=== PATIENT | male | born 1995 | race Caucasian/White ===

== ENCOUNTER 2017-02-01 15:38 | Emergency (ER) | payer OTHER ==
[~2017-02-01] VITALS: Wt 118.5 kg
--- NOTE | 2017-02-01 16:52 | RADRPT ---
PROCEDURE: US left lower extremity veins. CLINICAL INDICATION: Left leg pain and swelling. TECHNIQUE: Multiple longitudinal and transverse images of the left lower extremity veins were obta ined with turcios scale and color Doppler imaging. The common femoral vein, femoral vein, and popliteal vein were evaluated. 2D grayscale measurements with compression sonography, pulsed Doppler, color D oppler, and pulsed Doppler with augmentation. COMPARISON: No prior studies are available for comparison. FINDINGS: The left common femoral, femoral and popliteal veins are normally compressible throughout. Color fl ow demonstrates normal filling of the vessels. Normal waveforms are visualized and there is normal response to augmentation. IMPRESSION: 1. No evidence of deep vein thrombosis involving the left lower extremity. RPTAT: QQ .Homero Reed MD, MD Date Time Electronically viewed and signed by .Homero Reed MD, on 02/01/2017 16:52 .R/
--- NOTE | 2017-02-01 17:03 | ERD ---
ER Documentation Chief Complaint Date/Time DATE: 02/01/17 TIME: 17:00 Chief Complaint LEFT CALF PAIN S/P SPRINTING HPI This is a 21-year-old male presents to the ER with left calf pain that occurred today while he was sprinting. Patient has been doing soccer tournament all weekend and today during sprints he felt a pop to his left calf. Pain was severe and sharp. Patient states that now pain is getting much better. He does state that it hurts whenever he. He denies any swelling or redness of the calf. Patient denies any travel. He has not had any recent surgery. Patient is very active and plays soccer almost every day. Denies any ankle pain or knee pain. He denies any hip pain. ROS 12 point review of systems was done, all negative except per HPI. Medications Home Meds Active Scripts Ibuprofen* (Motrin*) 600 Mg Tab, 600 MG PO Q6, #30 TAB Prov:SHERLEY WINKLER 02/01/17 Allergies Allergies: Coded Allergies: No Known Allergy (Unverified , 02/01/17) PMhx/Soc Medical and Surgical Hx: pt denies Medical Hx, pt denies Surgical Hx History of Surgery: No Anesthesia Reaction: No Hx Neurological Disorder: No Hx Respiratory Disorders: No Hx Cardiac Disorders: No Hx Psychiatric Problems: No Hx Miscellaneous Medical Probl: No Hx Alcohol Use: No Hx Substance Use: No Hx Tobacco Use: No Smoking Status: Never smoker Physical Exam Vitals Vital Signs Date Time Temp Pulse Resp B/P Pulse Ox O2 Delivery O2 Flow Rate FiO2 02/01/17 15:42 99.1 89 12 154/88 98 Physical Exam GENERAL: The patient is well developed and appropriate for usual state of health , in no apparent distress. HEENT: Atraumatic. CHEST: Clear to auscultation bilaterally. There are no rales, wheezes or rhonchi. HEART: Regular rate and rhythm. No murmurs, clicks, rubs or gallops. EXTREMITIES: Equal pulses bilaterally. There is no peripheral clubbing, cyanosis or edema. No focal swelling or erythema. Full range of motion. Grossly neurovascularly intact. Patient is not tender to palpation to the left calf there is no redness or swelling. He has full range of motion of his foot plantar and dorsiflexion. It is nonpainful. There is no evidence of ankle pain , and he has full range of motion of his ankle. Patient does not have any knee pain he has full range of motion of the knee. He has nonpainful range of motion. NEURO: Alert and oriented. Procedures/MDM This is a 21-year-old male presents to the ER with calf pain after sprinting. Is likely a sore muscle secondary to constant use. Suspicion for DVT is low. Patient does not have any swelling or redness and his ultrasound is normal. Patient did not have any tenderness to his tibia or ankle and he did not fall. I do not believe that x-rays are necessary for this reason. Patient will be sent home with ibuprofen. She was told to stretch before he exercises. Patient is to follow-up with his primary care doctor within 1-2 days return to ER sooner if symptoms worsen. My medical decision making was shared with the patient he understands and agrees with plan. Departure Diagnosis: Primary Impression: Pain of left leg Condition: Stable SHERLEY WINKLER Feb 01, 2017 17:02
[2017-02-01] MEDS ORDERED: IBUP-1542 PO (17:24)
== END 2017-02-01 17:32 | disposition home or self-care (01) ==
LOC: FTE 15:38
DX: M79.605 Pain in left leg (principal)
CPT/HCPCS: 93971; Z7502